=== PATIENT | female | born 1960 | race Caucasian/White ===

== ENCOUNTER → 2020-12-12 12:15 | Outpatient (BNVA) | payer OTHER, SELFPAY | PROVIDERS: PCP Internal Medicine; Visit Provider Physician Assistant | DX: S50.311A Abrasion of right elbow, initial encounter (principal); S80.211A Abrasion, right knee, initial encounter; S93.402A Sprain of unspecified ligament of left ankle, initial encounter; W22.8XXA Striking against or struck by other objects, initial encounter | CPT/HCPCS: 73610; 99203 ==